=== PATIENT | female | born 2000 | race Caucasian/White ===

== ENCOUNTER 2018-01-17 14:16 | Outpatient (CLI) | payer OTHER | END 2018-01-17 16:25 | disposition home or self-care (01) | LOC: M LDO 14:16 | DX: O47.03 False labor before 37 completed weeks of gestation, third trimester (principal); Z3A.34 34 weeks gestation of pregnancy; E86.0 Dehydration; O99.283 Endocrine, nutritional and metabolic diseases complicating pregnancy, third trimester | CPT/HCPCS: 59025 ==

== ENCOUNTER 2018-02-02 13:31 | Outpatient (CLI) | payer OTHER | END 2018-02-02 15:48 | disposition home or self-care (01) | LOC: M LDO 13:31 | DX: Z36.89 Encounter for other specified antenatal screening (principal); Z3A.36 36 weeks gestation of pregnancy | CPT/HCPCS: 59025 ==

== ENCOUNTER 2018-02-25 09:54 | Inpatient (IN) | payer OTHER ==
[2018-02-25 11:21] LABS: BASO % 0.3 % (0.0-1.0); EOS # 0.2 10^3/uL (0.0-0.50); EOS % 1.5 % (0.0-3.0); HEMATOCRIT 36.3 % (36.0-47.0); HEMOGLOBIN 12.6 g/dl (12.0-15.5); IMMATURE GRANULOCYTE % 0.6 % (0-3.0); LYMPH # 1.6 10^3/uL (1.5-6.5); LYMPH % 15.3 % (24.0-44.0); MEAN CORPUSCULAR HEMOGLOBIN 32.2 pg (27.0-33.0); MEAN CORPUSCULAR HGB CONC 34.7 g/dl (32.0-36.5); MEAN CORPUSCULAR VOLUME 92.8 fl (80.0-96.0); MONO # 0.8 10^3/uL (0.0-0.8); MONO % 7.5 % (0.0-5.0); NEUTROPHILS # 7.7 10^3/uL (1.8-7.7); NEUTROPHILS % 74.8 % (36.0-66.0); PLATELET COUNT, AUTOMATED 185 10^3/uL (150-450); RED BLOOD COUNT 3.91 10^6/uL (4.00-5.40); RED CELL DISTRIBUTION WIDTH 12.5 % (11.5-14.5); WHITE BLOOD COUNT 10.3 10^3/uL (4.0-10.0)
[2018-02-25 11:32] LABS: APPEARANCE, URINE HAZY (CLEAR); BACTERIA, URINE AUTO 1+ (NEGATIVE); BILIRUBIN, URINE AUTO NEGATIVE (NEGATIVE); BLOOD, URINE BLOOD NEGATIVE (NEGATIVE); COLOR, URINE YELLOW (YELLOW); GLUCOSE, URINE (UA) AUTO NEGATIVE (NEGATIVE); KETONE, URINE AUTO NEGATIVE (NEGATIVE); LEUKOCYTE ESTERASE, URINE AUTO 2+ (NEGATIVE); MUCUS, URINE SMALL (NEGATIVE); NITRITE, URINE AUTO NEGATIVE (NEGATIVE); PROTEIN, URINE AUTO NEGATIVE (NEGATIVE); RBC, URINE AUTO 2 /HPF (0-3); SPECIFIC GRAVITY URINE AUTO 1.013 (1.002-1.035); SQUAMOUS EPITHELIAL CELL UR AU 3 /HPF (0-6); UROBILINOGEN, URINE AUTO 0.2 mg/dL (0.0-2.0); WBC, URINE AUTO 4 /HPF (0-3)
[2018-02-25 11:42] LABS: ALT/SGPT 14 U/L (12-78); AST/SGOT 14 U/L (7-37); BILIRUBIN,TOTAL 0.2 MG/DL (0.2-1.0); CREATININE FOR GFR 0.55 MG/DL (0.55-1.30); LDH LACTATE DEHYDROGENASE 160 U/L (84-246)
[2018-02-25 11:54] LABS: TOTAL PROTEIN,RANDOM URINE 16.5 MG/DL (0.0-12.0)
[2018-02-25 13:57] LABS: AMPHETAMINES URINE REFLEX NEGATIVE (NEGATIVE); BARBITURATES URINE REFLEX NEGATIVE (NEGATIVE); BENZODIAZEPINES URINE REFLEX NEGATIVE (NEGATIVE); CANNABINOIDS URINE REFLEX NEGATIVE (NEGATIVE); COCAINE METABOLITE URINE REFLE NEGATIVE (NEGATIVE); METHADONE URINE REFLEX NEGATIVE (NEGATIVE); OPIATES URINE REFLEX NEGATIVE (NEGATIVE); PHENCYCLIDINE URINE REFLEX NEGATIVE (NEGATIVE)
[2018-02-25] MEDS: LACTATED RINGER'S 1000 ML IV ×2 (17:11→23:00)
[2018-02-25] MEDS: LR 1,000 ML IV ×2 (17:11→23:30)
[2018-02-25] MEDS: OXYTOCIN DRIP 30 UNITS in APPROPRIATE DILUENT 1 EA IV (17:13)
[2018-02-25] MEDS ORDERED: FENTANYL 2MCG/ML ROPIVACAINE 0.2% IN 0.9% NACL 200ML IVBAG As Ordered (22:31)
[2018-02-25] MEDS ORDERED: EPIDURAL/PCA KEYS XX (23:38)
[2018-02-25] MEDS ORDERED: ONDANSETRON 4MG/2ML VIAL (J2405) IV (23:38)
[2018-02-25] MEDS ORDERED: REFRIGERATOR IV KEYS XX (23:38)
[2018-02-25] MEDS ORDERED: diphenhydrAMINE INJ 50MG/ML VIAL (J1200) IV (23:38)
[2018-02-25] MEDS ORDERED: NALOXONE INJ 0.4 MG/1 ML VIAL (J2310) IV (23:38)
[2018-02-25] MEDS ORDERED: FENTANYL/ROPIVACAINE/NACL BAG 200 ML EPIDURAL (23:38)
[2018-02-25] MEDS ORDERED: ePHEDrine SULFATE 25 MG/5 ML(5MG/ML) SYRINGE IV (23:38)
[2018-02-25] MEDS ORDERED: LACTATED RINGER'S 1000 ML IV (23:38)
[2018-02-25] MEDS ORDERED: EPIDURAL COMMENT XX (23:38)
[2018-02-26] MEDS ORDERED: DIBUCAINE 1% OINTMENT 30GM TOP (04:30)
[2018-02-26] MEDS ORDERED: MEASLES,MUMPS,RUBELLA VACCINE INJ (MMR-II) (90707) SC (04:30)
[2018-02-26] MEDS ORDERED: DOCUSATE SODIUM 100 MG CAP PO (04:30)
[2018-02-26] MEDS ORDERED: RHOGAM 300 MCG (1500 IU) INJ (J2790) IM (04:30)
[2018-02-26] MEDS: ACETAMINOPHEN 500 MG TAB PO ×3 (06:05→18:23)
[2018-02-26] MEDS: IBUPROFEN 800 MG TAB PO ×2 (06:05→20:25)
[2018-02-26 06:30] LABS: HBSAG L&D NEGATIVE (NEGATIVE)
[2018-02-26] MEDS: OXYTOCIN DRIP 30 UNITS in APPROPRIATE DILUENT 1 EA IV (07:24)
[2018-02-26] MEDS: PRENATAL VITAMINS CHEWABLE TABLET PO (08:50)
[2018-02-27] MEDS: PRENATAL VITAMINS CHEWABLE TABLET PO (07:47)
[2018-02-27] MEDS: IBUPROFEN 800 MG TAB PO (07:48)
== END 2018-02-27 12:35 | disposition home or self-care (01) | DRG 775 ==
LOC: M LDO 09:54 → M OBS 02-26 06:18 → M LDI 12:35
PROC: 10E0XZZ Delivery of Products of Conception, External Approach (ICD-10-PCS; principal; 2018-02-26)
PROC: 10907ZC Drainage of Amniotic Fluid, Therapeutic from Products of Conception, Via Natural or Artificial Opening (ICD-10-PCS; 2018-02-26)
PROC: 0HQ9XZZ Repair Perineum Skin, External Approach (ICD-10-PCS; 2018-02-26)
DX: O13.4 Gestational [pregnancy-induced] hypertension without significant proteinuria, complicating childbirth (principal); O32.6XX0 Maternal care for compound presentation, not applicable or unspecified; O69.1XX0 Labor and delivery complicated by cord around neck, with compression, not applicable or unspecified; O70.0 First degree perineal laceration during delivery; Z37.0 Single live birth; Z3A.39 39 weeks gestation of pregnancy

== ENCOUNTER → 2018-05-06 | Outpatient (REF) | payer OTHER ==
[2018-05-07 11:16] LABS: THYROGLOBULIN ANTIBODY 36.5 U/ML (<60.0)
[2018-05-07 11:37] LABS: THYROID PEROXIDASE ANTIBODY 50.1 U/ML (<60.0)
== END ==
LOC: M LABDRAW1 15:24
DX: E22.1 Hyperprolactinemia (principal); E04.0 Nontoxic diffuse goiter
CPT/HCPCS: 84146